=== PATIENT | male | born 1960 | race Caucasian/White ===

== ENCOUNTER → 2017-02-06 | Outpatient (CLI) | payer BC ==
[~2017-02-06] MED LIST: ASCORBIC ACID500 MG PO; ASPIRIN EC81 MG PO; ATIVAN 0.5MG0.5 MG PO; CINNAMON500 MG PO; COLACE100 MG PO; COQ1050 MG PO; DILAUDID 2MG(HYD2 MG PO; FLAX SEED OIL1000 MG PO; LIVALO2 MG PO; LYRICA50 MG PO; MIRALAX17 GM PO; NUCYNTA75 MG PO; OXYCONTIN EXTEN10 MG PO; PINDOLOL5 MG PO; PROBIOTIC1 EAC1 PO; RELISTOR12 MG/0.6 IM; SAW PALMETTO80 MG PO; SKELAXIN800 MG PO; TURMERIC500 MG PO; TYLENOL EXTRA500 MG PO; ULTRAM50 MG PO; UROMAG84.5 MG PO; VALIUM5 MG PO; VITAMIN D31000 UNI2 PO; XARELTO10 MG PO
== END | disposition disaster alternative care site (69) ==
LOC: GRAD 01-31 08:00
DX: M25.551 Pain in right hip (principal); M85.68 Other cyst of bone, other site